=== PATIENT | male | born 1970 | race Caucasian/White ===

== ENCOUNTER 2018-11-14 15:40 | Emergency (ER) | payer BC ==
[2018-11-14] MEDS ORDERED: Ibuprofen 200 MG TAB ONE (16:29)
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
== END 2018-11-14 17:36 | disposition home or self-care (01) ==
LOC: ERS 15:40
DX: M54.2 Cervicalgia (principal); F17.220 Nicotine dependence, chewing tobacco, uncomplicated; V89.2XXA Person injured in unspecified motor-vehicle accident, traffic, initial encounter
CPT/HCPCS: 71046; 72040